=== PATIENT | male | born 1970 | race Caucasian/White ===

== ENCOUNTER 2017-03-10 13:51 | Emergency (ER) | payer OTHER ==
[~2017-03-10] VITALS: Ht 175.3 cm; Wt 102.1 kg
[2017-03-10] MEDS ORDERED: ULTRAM50 MG PO (14:07)
[2017-03-10] MEDS ORDERED: MAXZIDE 37.5 MG-1 EA PO (14:08)
[2017-03-10] MEDS ORDERED: CYCLOBENZAPRINE10 MG PO (14:08)
[2017-03-10] MEDS ORDERED: MOBIC15 MG PO (14:09)
[2017-03-10] MEDS ORDERED: PROPRANOLOL HCL80 M1 PO (14:09)
[2017-03-10] MEDS ORDERED: KETOROLAC TROME10 MG PO (14:30)
[2017-03-10] MEDS ORDERED: METHYLPREDNISOLO4 M1 PO (14:30)
== END 2017-03-10 14:35 | disposition home or self-care (01) ==
LOC: ED 13:51
DX: G89.29 Other chronic pain (principal); M54.5 Low back pain
CPT/HCPCS: 99283